=== PATIENT | male | born 1995 | race American Indian/Alaskan Native ===

== ENCOUNTER 2016-11-15 19:26 | Emergency (ER) | payer MEDICAID ==
[2016-11-15] MEDS ORDERED: Sodium Chloride 0.9% 1,000 ML IV SCH (20:00)
--- NOTE | 2016-11-15 20:38 | EDM.PDOC ---
ED HPI GENERAL MEDICAL PROBLEM - General Chief Complaint: Drug or Alcohol Abuse Stated Complaint: MEDICAL [facility]IA [facility] Time Seen by Provider: 11/15/16 19:41 Source of Information: Reports: Patient, Family (Mother) - History of Present Illness INITIAL COMMENTS - FREE TEXT/NARRATIVE: took Mucinex tablets to get high; This is a 20 year old male arrives to ER via Ambulance, he is here with his Mother, who reports he was released from a year long Inpatient Treatment group near [place], He has been home for two weeks. He was at his prior Foster Dad's home then to attend appointment at "[employer]" when he had his [facility] Volunteer Preload Supervisor take him to [employer], where he purchased to packages of Mucinex. Reports took Mucinex at 13:30 pm today and again at 18:30 this evening. He reports he just wanted to get high, has no desire to "kill himself" or harm himself. Denies use of any other chemical or ETOH. Mom reports Primary Care Provider; Dr. Coleman and Dr. Shamika Astorga at [facility] Mom report feel safe at home with Parviz. He is not violent. Onset: Today Duration: Hour(s): Location: Reports: Generalized Quality: Reports: Same as Previous Episode (previous overdose of Mucinex ; multi times at [facility], [facility], & [place]) Improves with: Reports: None Worsens with: Reports: None Associated Symptoms: Reports: Confusion (reports feeling high and seeing double right now) Treatments CHEMICAL PLANT MANAGER: Reports: See EMS Report - Related Data Allergies Allergy/AdvReac Type Severity Reaction Status Date / Time No Known Allergies Allergy Verified 12/27/15 01:08 Home Meds: Home Meds FLUoxetine [PROzac] 40 tab PO BEDTIME 11/14/14 [History] Cholecalciferol (Vitamin D3) [Vitamin D3] 1,000 tab PO DAILY 01/07/15 [History] Levothyroxine 25 mcg PO DAILY 12/27/15 [History] Naltrexone 1 tab PO DAILY 12/27/15 [History] OLANZapine [Zyprexa] 35 mg PO DAILY 12/27/15 [History] Propranolol [Inderal] 20 mg PO DAILY 12/27/15 [History] Past Medical History Neurological History: Reports: Brain Injury Other Neuro History: Mood instability. alcohol Psychiatric History: Reports: Addiction, Suicide Attempt, Other (See Below) Other Psychiatric History: wrist cutting Endocrine/Metabolic History: Reports: Hypothyroidism Social & Family History - Family History Family Medical History: Unobtainable - Tobacco Use Smoking Status *Q: Heavy Tobacco Smoker Years of Tobacco use: 7 Packs/Tins Daily: 1 Used Tobacco, but Quit: No Second Hand Smoke Exposure: Yes - Caffeine Use Caffeine Use: Reports: None - Recreational Drug Use Recreational Drug Use: Yes Drug Use in Last 12 Months: Yes Recreational Drug Type: Reports: Other (see below) Other Recreational Drug Type: mucenex twice a year Recreational Drug Use Frequency: Not Used In Over 2 Months - Living Situation & Occupation Living situation: Reports: Single Occupation: Disabled (lives with Mom in [place], [place] for the past 2 weeks, prior one year treatment center alf in [place], [place]. near [place], [place] ED ROS GENERAL - Review of Systems Review Of Systems: See Below Constitutional: Reports: Other (feeling of euphoria) HEENT: Reports: Vision Change Respiratory: Reports: No Symptoms Cardiovascular: Reports: No Symptoms Endocrine: Reports: No Symptoms GI/Abdominal: Reports: No Symptoms : Reports: No Symptoms Musculoskeletal: Reports: No Symptoms Skin: Reports: No Symptoms Neurological: Reports: No Symptoms Psychiatric: Reports: Other (sedation) Hematologic/Lymphatic: Reports: No Symptoms Immunologic: Reports: No Symptoms ED EXAM, GENERAL - Physical Exam Exam: See Below Exam Limited By: Altered Mental Status General Appearance: Other (sedation, answers questions appropriately. oriented to person, place and time.) Eye Exam: Bilateral Eye: Abnormal EOM, Normal Inspection, Vision Changes Ears: Normal External Exam, Normal Canal, Hearing Grossly Normal, Normal TMs Ear Exam: Bilateral Ear: Auricle Normal, Canal Normal, TM normal Nose: Normal Inspection, Normal Mucosa, No Blood Throat/Mouth: Normal Inspection, Normal Lips, Normal Teeth, Normal Gums, Normal Oropharynx, Normal Voice, No Airway Compromise Head: Atraumatic, Normocephalic Neck: Normal Inspection, Supple, Non-Tender, Full Range of Motion Respiratory/Chest: No Respiratory Distress, Lungs Clear, Normal Breath Sounds, No Accessory Muscle Use, Chest Non-Tender Cardiovascular: Normal Peripheral Pulses, Regular Rate, Rhythm, No Edema, No Gallop, No JVD, No Murmur, No Rub Peripheral Pulses: 2+: Radial (L), Radial (R), Posterior Tibial (R), Dorsalis Pedis (L) GI/Abdominal: Normal Bowel Sounds, Soft, Non-Tender, No Organomegaly, No Distention, No Abnormal Bruit, No Mass (Male) Exam: Deferred Rectal (Males) Exam: Deferred Back Exam: Normal Inspection, Full Range of Motion, NT Extremities: Normal Inspection, Normal Range of Motion, Non-Tender, Normal Capillary Refill, No Pedal Edema Neurological: Alert, Oriented, CN II-XII Intact, Normal Cognition, Normal Gait, Normal Reflexes, No Motor/Sensory Deficits Psychiatric: Depressed Mood, Flat Affect Skin Exam: Warm, Dry, Intact, Normal Color, No Rash Lymphatic: No Adenopathy EKG INTERPRETATION Rhythm: NSR QRS: RBBB Course - Vital Signs Last Recorded V/S: Last Vital Signs Temp 36.9 C 11/15/16 19:32 Pulse 61 11/15/16 22:36 Resp 16 11/15/16 22:36 BP 128/78 11/15/16 22:36 Pulse Ox 92 L 11/15/16 22:36 - Orders/Labs/Meds Orders: Active Orders 24 hr Category Date Time Status EKG Documentation Completion [RC] ASDIRECTED Care 11/15/16 19:46 Active Oxygen Therapy [RC] ASDIRECTED Care 11/15/16 19:47 Active Sodium Chloride 0.9% [Normal Saline] 1,000 ml Med 11/15/16 20:00 Active IV ASDIRECTED EKG 12 Lead [EK] Urgent Ther 11/15/16 19:44 Ordered Medication Orders Sodium Chloride (Normal Saline) 1,000 mls @ 999 mls/hr IV ASDIRECTED BON Last Admin: 11/15/16 19:49 Dose: 999 mls/hr Labs: Laboratory Tests 11/15/16 11/15/16 11/15/16 Range/Units 19:48 19:48 19:48 WBC 7.5 (4.5-11.0) K/uL RBC 5.91 H (4.30-5.90) M/uL Hgb 16.4 H (12.0-15.0) g/dL Hct 48.6 (40.0-54.0) % MCV 82 (80-98) fL MCH 28 (27-31) pg MCHC 34 (32-36) % Plt Count 324 (150-400) K/uL Neut % (Auto) 68 H (36-66) % Lymph % (Auto) 22 L (24-44) % [place] % (Auto) 8 H (2-6) % Eos % (Auto) 1 L (2-4) % Baso % (Auto) 1 (0-1) % Sodium 138 L (140-148) mmol/L Potassium 4.3 (3.6-5.2) mmol/L Chloride 104 (100-108) mmol/L Carbon Dioxide 27 (21-32) mmol/L Anion Gap 11.3 (5.0-14.0) mmol/L BUN 9 (7-18) mg/dL Creatinine 1.0 (0.8-1.3) mg/dL Est Cr Clr Drug Dosing 138.49 mL/min Estimated GFR (MDRD) > 60 (>60) Glucose 83 (74-106) mg/dL Calcium 8.5 (8.5-10.1) mg/dL Total Bilirubin 1.0 (0.2-1.0) mg/dL AST 49 H D (15-37) U/L ALT 81 H (12-78) U/L Alkaline Phosphatase 179 H (46-116) U/L Total Protein 8.2 (6.4-8.2) g/dL Albumin 4.0 (3.4-5.0) g/dL Globulin 4.2 H (2.3-3.5) g/dL Albumin/Globulin Ratio 1.0 L (1.2-2.2) Urine Color Urine Appearance Urine pH (4.5-8.0) Ur Specific [place] (1.008-1.030) Urine Protein (NEGATIVE) mg/dL Urine Glucose (UA) (NEGATIVE) mg/dL Urine Ketones (NEGATIVE) mg/dL Urine Occult Blood (NEGATIVE) Urine Nitrite (NEGAITVE) Urine Bilirubin (NEGATIVE) Urine Urobilinogen (NORMAL) mg/dL Ur Leukocyte Esterase (NEGATIVE) Urine RBC (0-5) Urine WBC (0-5) Ur Epithelial Cells Amorphous Sediment Urine Bacteria Urine Mucus Urine Opiates Screen (NEGATIVE) Ur Oxycodone Screen (NEGATIVE) Urine Methadone Screen (NEGATIVE) Ur Propoxyphene Screen (NEGATIVE) Acetaminophen 0.0 L (10.0-30.0) ug/mL Ur Barbiturates Screen (NEGATIVE) Ur Tricyclics Screen (NEGATIVE) Ur Phencyclidine Scrn (NEGATIVE) Ur Amphetamine Screen (NEGATIVE) U Methamphetamines Scrn (NEGATIVE) Urine MDMA Screen (NEGATIVE) U Benzodiazepines Scrn (NEGATIVE) U Cocaine Metab Screen (NEGATIVE) U Marijuana (THC) Screen (NEGATIVE) Ethyl Alcohol mg/dL 11/15/16 11/15/16 11/15/16 Range/Units 19:48 20:11 20:11 WBC (4.5-11.0) K/uL RBC (4.30-5.90) M/uL Hgb (12.0-15.0) g/dL Hct (40.0-54.0) % MCV (80-98) fL MCH (27-31) pg MCHC (32-36) % Plt Count (150-400) K/uL Neut % (Auto) (36-66) % Lymph % (Auto) (24-44) % [place] % (Auto) (2-6) % Eos % (Auto) (2-4) % Baso % (Auto) (0-1) % Sodium (140-148) mmol/L Potassium (3.6-5.2) mmol/L Chloride (100-108) mmol/L Carbon Dioxide (21-32) mmol/L Anion Gap (5.0-14.0) mmol/L BUN (7-18) mg/dL Creatinine (0.8-1.3) mg/dL Est Cr Clr Drug Dosing mL/min Estimated GFR (MDRD) (>60) Glucose (74-106) mg/dL Calcium (8.5-10.1) mg/dL Total Bilirubin (0.2-1.0) mg/dL AST (15-37) U/L ALT (12-78) U/L Alkaline Phosphatase (46-116) U/L Total Protein (6.4-8.2) g/dL Albumin (3.4-5.0) g/dL Globulin (2.3-3.5) g/dL Albumin/Globulin Ratio (1.2-2.2) Urine Color Yellow Urine Appearance Clear Urine pH 6.0 (4.5-8.0) Ur Specific [place] 1.015 (1.008-1.030) Urine Protein Negative (NEGATIVE) mg/dL Urine Glucose (UA) Normal (NEGATIVE) mg/dL Urine Ketones Negative (NEGATIVE) mg/dL Urine Occult Blood Negative (NEGATIVE) Urine Nitrite Negative (NEGAITVE) Urine Bilirubin Negative (NEGATIVE) Urine Urobilinogen Normal (NORMAL) mg/dL Ur Leukocyte Esterase Negative (NEGATIVE) Urine RBC 0-5 (0-5) Urine WBC 0-5 (0-5) Ur Epithelial Cells Rare Amorphous Sediment Not seen Urine Bacteria Few Urine Mucus Not seen Urine Opiates Screen Positive H (NEGATIVE) Ur Oxycodone Screen Positive H (NEGATIVE) Urine Methadone Screen Negative (NEGATIVE) Ur Propoxyphene Screen Negative (NEGATIVE) Acetaminophen (10.0-30.0) ug/mL Ur Barbiturates Screen Negative (NEGATIVE) Ur Tricyclics Screen Negative (NEGATIVE) Ur Phencyclidine Scrn Negative (NEGATIVE) Ur Amphetamine Screen Negative (NEGATIVE) U Methamphetamines Scrn Negative (NEGATIVE) Urine MDMA Screen Negative (NEGATIVE) U Benzodiazepines Scrn Negative (NEGATIVE) U Cocaine Metab Screen Negative (NEGATIVE) U Marijuana (THC) Screen Negative (NEGATIVE) Ethyl Alcohol < 3 mg/dL 11/15/16 Range/Units 22:00 WBC (4.5-11.0) K/uL RBC (4.30-5.90) M/uL Hgb (12.0-15.0) g/dL Hct (40.0-54.0) % MCV (80-98) fL MCH (27-31) pg MCHC (32-36) % Plt Count (150-400) K/uL Neut % (Auto) (36-66) % Lymph % (Auto) (24-44) % [place] % (Auto) (2-6) % Eos % (Auto) (2-4) % Baso % (Auto) (0-1) % Sodium (140-148) mmol/L Potassium (3.6-5.2) mmol/L Chloride (100-108) mmol/L Carbon Dioxide (21-32) mmol/L Anion Gap (5.0-14.0) mmol/L BUN (7-18) mg/dL Creatinine (0.8-1.3) mg/dL Est Cr Clr Drug Dosing mL/min Estimated GFR (MDRD) (>60) Glucose (74-106) mg/dL Calcium (8.5-10.1) mg/dL Total Bilirubin (0.2-1.0) mg/dL AST (15-37) U/L ALT (12-78) U/L Alkaline Phosphatase (46-116) U/L Total Protein (6.4-8.2) g/dL Albumin (3.4-5.0) g/dL Globulin (2.3-3.5) g/dL Albumin/Globulin Ratio (1.2-2.2) Urine Color Urine Appearance Urine pH (4.5-8.0) Ur Specific [place] (1.008-1.030) Urine Protein (NEGATIVE) mg/dL Urine Glucose (UA) (NEGATIVE) mg/dL Urine Ketones (NEGATIVE) mg/dL Urine Occult Blood (NEGATIVE) Urine Nitrite (NEGAITVE) Urine Bilirubin (NEGATIVE) Urine Urobilinogen (NORMAL) mg/dL Ur Leukocyte Esterase (NEGATIVE) Urine RBC (0-5) Urine WBC (0-5) Ur Epithelial Cells Amorphous Sediment Urine Bacteria Urine Mucus Urine Opiates Screen (NEGATIVE) Ur Oxycodone Screen (NEGATIVE) Urine Methadone Screen (NEGATIVE) Ur Propoxyphene Screen (NEGATIVE) Acetaminophen 0.0 L (10.0-30.0) ug/mL Ur Barbiturates Screen (NEGATIVE) Ur Tricyclics Screen (NEGATIVE) Ur Phencyclidine Scrn (NEGATIVE) Ur Amphetamine Screen (NEGATIVE) U Methamphetamines Scrn (NEGATIVE) Urine MDMA Screen (NEGATIVE) U Benzodiazepines Scrn (NEGATIVE) U Cocaine Metab Screen (NEGATIVE) U Marijuana (THC) Screen (NEGATIVE) Ethyl Alcohol mg/dL Meds: Medications Generic Name Dose Route Start Last Admin Trade Name Freq PRN Reason Stop Dose Admin Sodium Chloride 1,000 mls @ 999 mls/hr 11/15/16 20:00 11/15/16 19:49 Normal Saline IV 999 mls/hr ASDIRECTED [facility] Administration - Re-Assessments/Exams Free Text/Narrative Re-Assessment/Exam: 11/15/16 20:45 contacted Poison Control, reports Mucinex peaks effect at 6 to 8 hours, clears out in 12 hours, recommends labs, monitor for seizure activity, safe to discharge to home, if clinical indicated. discussed with Parent, she feels safe taking him home. Will go home and search and removes any substances of abuse. and will be back later this evening. 11/15/16 20:49 labs ordered IV Normal Saline 999ml/hr x 2 liters then at rate of 150ml monitor closely 11/15/16 23:58 observed in ER for 4 + hours, no tremor, seizure activity noted. He watched TV and rested, ate pudding, crackers, soda without any nausea, vomiting reports feeling better, no more double vision, resolved, ready to go home Mom to transport home. Departure - Departure Time of Disposition: 23:53 Disposition: Home, Self-Care 01 Condition: good Clinical Impression: Drug abuse - Discharge Information Referrals: PCP,None [Primary Care Provider] - Forms: ED Department Discharge Care Plan Goals: Drug abuse -Mom to call Mental Health Provider for addiction in am -discussed with Mr. Jj not further drugs , go home and rest. -family agrees with plan of care - Problem List & Annotations (1) Drug abuse SNOMED Code(s): 23104961 Code(s): F19.10 - OTHER PSYCHOACTIVE SUBSTANCE ABUSE, UNCOMPLICATED Status : Acute Priority: High Current Visit: Yes - Problem List Review Problem List Initiated/Reviewed/Updated: Yes - My Orders Last 24 Hours: My Active Orders 11/15/16 19:44 EKG 12 Lead [EK] Urgent 11/15/16 19:46 EKG Documentation Completion [RC] ASDIRECTED 11/15/16 19:47 Oxygen Therapy [RC] ASDIRECTED 11/15/16 20:00 Sodium Chloride 0.9% [Normal Saline] 1,000 ml IV ASDIRECTED - Assessment/Plan Last 24 Hours: My Active Orders 11/15/16 19:44 EKG 12 Lead [EK] Urgent 11/15/16 19:46 EKG Documentation Completion [RC] ASDIRECTED 11/15/16 19:47 Oxygen Therapy [RC] ASDIRECTED 11/15/16 20:00 Sodium Chloride 0.9% [Normal Saline] 1,000 ml IV ASDIRECTED Plan: Drug abuse -Mom to call Mental Health Provider for addiction in am -discussed with Mr. Jj not further drugs , go home and rest. -family agrees with plan of care return to ER if not improved or symptoms worsen.
[2016-11-15 22:40] VITALS: BP 128/78
== END 2016-11-16 00:01 | disposition home or self-care (01) ==
LOC: EEVIPCON 19:26 → JP.ED 19:26
DX: F19.10 Other psychoactive substance abuse, uncomplicated (principal); E03.9 Hypothyroidism, unspecified; F17.210 Nicotine dependence, cigarettes, uncomplicated; Z79.899 Other long term (current) drug therapy
CPT/HCPCS: 36415; 80053; 80305; 81001; 85025; 93005; 96360; 99283; G0480; J7040; 93010

== ENCOUNTER 2016-12-06 13:11 | Emergency (ER) | payer MEDICAID ==
[2016-12-06 13:32] VITALS: BP 136/82
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
== END 2016-12-06 14:55 | disposition left against medical advice (07) ==
LOC: JP.ED 13:11
DX: F19.10 Other psychoactive substance abuse, uncomplicated (principal); R45.4 Irritability and anger; F17.210 Nicotine dependence, cigarettes, uncomplicated; E03.9 Hypothyroidism, unspecified; Z79.899 Other long term (current) drug therapy
CPT/HCPCS: 36415; 80305; 99285; G0480; 99282

== ENCOUNTER 2016-12-10 21:54 | Emergency (ER) | payer MEDICAID ==
[2016-12-10 23:56] VITALS: BP 156/90
[2016-12-11] MEDS ORDERED: Promethazine 25 MG/ML SDV IM ONE (00:27)
--- NOTE | 2016-12-11 00:37 | EDM.PDOC ---
ED HPI GENERAL MEDICAL PROBLEM - General Chief Complaint: Gastrointestinal Problem Stated Complaint: ILLNESS Time Seen by Provider: 12/10/16 22:46 Source of Information: Reports: Patient History Limitations: Reports: No Limitations - History of Present Illness INITIAL COMMENTS - FREE TEXT/NARRATIVE: upset stomach for the past 3 days; this is a 21 year old male, presents to ER for evaluation of symptoms. He reports has been in Care Home for the past 3 days, got out this afternoon. He reports his stomach has been nauseated, feels like he is going to throw up, he has been drinking pop, which is okay on stomache, but food and liquids make him sick. denies any fever or chills. Onset: Gradual Duration: Constant Location: Reports: Abdomen Quality: Reports: Other (nausea) Severity: Mild Improves with: Reports: None Worsens with: Reports: Eating Associated Symptoms: Reports: Loss of Appetite, Other (nausea) Denies Pain Score (Numeric/FACES): 0 - Related Data Allergies Allergy/AdvReac Type Severity Reaction Status Date / Time amoxicillin Allergy Swelling Verified 12/10/16 23:45 Home Meds: Home Meds FLUoxetine [PROzac] 40 tab PO BEDTIME 11/14/14 [History] Cholecalciferol (Vitamin D3) [Vitamin D3] 1,000 tab PO DAILY 01/07/15 [History] Levothyroxine 25 mcg PO DAILY 12/27/15 [History] Naltrexone 1 tab PO DAILY 12/27/15 [History] OLANZapine [Zyprexa] 35 mg PO DAILY 12/27/15 [History] Propranolol [Inderal] 80 mg PO DAILY 12/27/15 [History] Past Medical History - Past Health History Medical/Surgical History: Denies Medical/Surgical History Cardiovascular History: Reports: Hypertension Musculoskeletal History: Reports: Fracture Neurological History: Reports: Brain Injury Other Neuro History: Mood instability. alcohol Psychiatric History: Reports: Addiction, Suicide Attempt, Other (See Below) Other Psychiatric History: wrist cutting Endocrine/Metabolic History: Reports: Hypothyroidism Social & Family History - Family History Family Medical History: Unobtainable - Tobacco Use Smoking Status *Q: Current Every Day Smoker Years of Tobacco use: 7 Packs/Tins Daily: 0.2 Used Tobacco, but Quit: No Second Hand Smoke Exposure: No - Caffeine Use Caffeine Use: Reports: Soda - Recreational Drug Use Recreational Drug Use: No Drug Use in Last 12 Months: Yes Recreational Drug Type: Reports: Other (see below) Other Recreational Drug Type: Musinex Has not taken for 5 days Recreational Drug Use Frequency: Daily - Living Situation & Occupation Living situation: Reports: Single Occupation: Disabled (lives with Mom in [place], [place] for the past 2 weeks, prior one year treatment center longterm in [place], [place]. near [place], [place] ED ROS GENERAL - Review of Systems Review Of Systems: See Below Constitutional: Reports: Malaise, Decreased Appetite HEENT: Reports: No Symptoms Respiratory: Reports: No Symptoms Cardiovascular: Reports: No Symptoms Endocrine: Reports: No Symptoms GI/Abdominal: Reports: Decreased Appetite, Nausea : Reports: No Symptoms Musculoskeletal: Reports: No Symptoms Skin: Reports: No Symptoms Neurological: Reports: No Symptoms Psychiatric: Reports: No Symptoms Hematologic/Lymphatic: Reports: No Symptoms Immunologic: Reports: No Symptoms ED EXAM, GI/ABD - Physical Exam Exam: See Below Exam Limited By: No Limitations General Appearance: Alert, WD/WN, No Apparent Distress Eyes: Bilateral: Normal Appearance Ears: Normal External Exam, Normal Canal, Hearing Grossly Normal, Normal TMs Nose: Normal Inspection, Normal Mucosa, No Blood Throat/Mouth: Normal Inspection, Normal Lips, Normal Teeth, Normal Gums, Normal Oropharynx, Normal Voice, No Airway Compromise Head: Atraumatic, Normocephalic Neck: Normal Inspection, Supple, Non-Tender, Full Range of Motion Respiratory/Chest: No Respiratory Distress, Lungs Clear, Normal Breath Sounds, No Accessory Muscle Use, Chest Non-Tender Cardiovascular: Normal Peripheral Pulses, Regular Rate, Rhythm, No Edema, No Gallop, No JVD, No Murmur, No Rub GI/Abdominal: Normal Bowel Sounds, Soft, Non-Tender, No Organomegaly, No Distention, No Abnormal Bruit, No Mass (Male) Exam: Deferred Rectal (Males) Exam: Deferred Back Exam: Normal Inspection, Full Range of Motion Extremities: Normal Inspection, Normal Range of Motion, Non-Tender, No Pedal Edema, Normal Capillary Refill Neurological: Alert, Oriented, CN II-XII Intact, Normal Cognition, Normal Gait, Normal Reflexes, No Motor/Sensory Deficits Psychiatric: Normal Affect, Normal Mood Skin Exam: Warm, Dry, Intact, Normal Color, No Rash Lymphatic: No Adenopathy Course - Vital Signs Last Recorded V/S: Last Vital Signs Temp 36.8 C 12/10/16 23:55 Pulse 76 12/10/16 23:55 Resp 16 12/10/16 23:55 BP 156/90 H 12/10/16 23:55 Pulse Ox 96 12/10/16 23:55 - Orders/Labs/Meds Meds: Medications Discontinued Medications Generic Name Dose Route Start Last Admin Trade Name Freq PRN Reason Stop Dose Admin Promethazine HCl 25 mg 12/11/16 00:27 12/11/16 00:40 Phenergan IM 12/11/16 00:28 25 mg ONETIME ONE Administration - Re-Assessments/Exams Free Text/Narrative Re-Assessment/Exam: 12/11/16 01:12 given Phenergan 25mg im will discharge to home with script for Zofran odt 4mg every 8 hr prn nausea and vomiting # 5 Mr. Warner agrees with plan of care. Departure - Departure Time of Disposition: 01:15 Disposition: Home, Self-Care 01 Condition: Good Clinical Impression: Gastroenteritis - Discharge Information Instructions: Viral Gastroenteritis, Adult Referrals: PCP,None [Primary Care Provider] - Forms: ED Department Discharge Care Plan Goals: gastroenteritis -Phenegran 25mg im -home medication; Zofran odt one every 8 hours as needed for nausea -rest -push fluids; clear liquids as directed return to clinic or er if not improved or symptoms worsen. - Problem List & Annotations (1) Gastroenteritis SNOMED Code(s): 03457888 Code(s): K52.9 - NONINFECTIVE GASTROENTERITIS AND COLITIS, UNSPECIFIED Status: Acute Current Visit: Yes - Problem List Review Problem List Initiated/Reviewed/Updated: Yes - Assessment/Plan Plan: gastroenteritis -Phenegran 25mg im -home medication; Zofran odt one every 8 hours as needed for nausea -rest -push fluids; clear liquids as directed return to clinic or er if not improved or symptoms worsen.
== END 2016-12-11 01:12 | disposition home or self-care (01) ==
LOC: JP.ED 21:54
DX: K52.9 Noninfective gastroenteritis and colitis, unspecified (principal); F17.210 Nicotine dependence, cigarettes, uncomplicated; I10 Essential (primary) hypertension; E03.9 Hypothyroidism, unspecified; Z79.899 Other long term (current) drug therapy; Z88.1 Allergy status to other antibiotic agents
CPT/HCPCS: 96372; 99284; J2550; 99283

== ENCOUNTER 2016-12-17 20:22 | Emergency (ER) | payer MEDICAID ==
[2016-12-17 21:09] VITALS: BP 146/89
--- NOTE | 2016-12-17 21:46 | EDM.PDOC ---
[id number]: DETOX EVAL Time Seen by Provider: 12/17/16 21:25 Source of Information: Reports: Patient History Limitations: Reports: No Limitations - History of Present Illness INITIAL COMMENTS - FREE TEXT/NARRATIVE: 21-year-old male with chronic substance abuse issues has been doing methamphetamine and was brought in to be cleared for detox. He denies drinking alcohol. No other medical complaints at this time. Onset: Unknown/Unsure Associated Symptoms: Reports: No Other Symptoms Denies Pain Score (Numeric/FACES): 0 - Related Data Allergies Allergy/AdvReac Type Severity Reaction Status Date / Time amoxicillin Allergy Swelling Verified 12/17/16 21:09 Home Meds: Home Meds Cholecalciferol (Vitamin D3) [Vitamin D3] 1,000 tab PO DAILY 01/07/15 [History] Levothyroxine 25 mcg PO DAILY 12/27/15 [History] Propranolol [Inderal] 80 mg PO DAILY 12/27/15 [History] Past Medical History - Past Health History Medical/Surgical History: Denies Medical/Surgical History Cardiovascular History: Reports: Hypertension Musculoskeletal History: Reports: Fracture Neurological History: Reports: Brain Injury Other Neuro History: Mood instability. alcohol Psychiatric History: Reports: Addiction, Suicide Attempt, Other (See Below) Other Psychiatric History: wrist cutting ETOH abuse Endocrine/Metabolic History: Reports: Hypothyroidism Social & Family History - Family History Family Medical History: Unobtainable - Tobacco Use Smoking Status *Q: Current Every Day Smoker Years of Tobacco use: 7 Packs/Tins Daily: 0.5 Used Tobacco, but Quit: No Second Hand Smoke Exposure: Yes - Caffeine Use Caffeine Use: Reports: Soda, Tea - Alcohol Use Days Per Week of Alcohol Use: 0 - Recreational Drug Use Recreational Drug Use: Yes Drug Use in Last 12 Months: Yes Recreational Drug Type: Reports: Marijuana/Hashish, Methamphetamine Other Recreational Drug Type: Musinex Has not taken for 5 days Recreational Drug Use Frequency: Monthly - Living Situation & Occupation Living situation: Reports: Single Occupation: Disabled (lives with Mom in [place], [place] for the past 2 weeks, prior one year treatment center alf in [place], [place]. near [place], [place] ED ROS GENERAL - Review of Systems Review Of Systems: See Below Constitutional: Denies: Fever, Chills Respiratory: Denies: Shortness of Breath, Cough Cardiovascular: Denies: Chest Pain GI/Abdominal: Denies: Abdominal Pain, Nausea, Vomiting Skin: Reports: No Symptoms Neurological: Reports: No Symptoms ED EXAM, BEHAVIORAL HEALTH - Physical Exam Exam: See Below Exam Limited By: No Limitations General Appearance: Alert, No Apparent Distress Eye Exam: Bilateral Eye: Normal Inspection Respiratory/Chest: No Respiratory Distress Cardiovascular: Regular Rate, Rhythm Extremities: Normal Inspection Neurological: Alert Psychiatric: Flat Affect Skin Exam: Warm, Dry COURSE, BEHAVIORAL HEALTH COMP - Course Vital Signs: Last Vital Signs Temp 98.6 F 12/17/16 21:18 Pulse 96 12/17/16 21:18 Resp 16 12/17/16 21:18 BP 146/89 H 12/17/16 21:18 Pulse Ox 99 12/17/16 21:18 Orders, Labs, Meds: Laboratory Tests 12/17/16 12/17/16 12/17/16 Range/Units 21:51 21:51 21:51 WBC 8.7 (4.5-11.0) K/uL RBC 5.37 (4.30-5.90) M/uL Hgb 15.0 (12.0-15.0) g/dL Hct 43.7 (40.0-54.0) % MCV 81 (80-98) fL MCH 28 (27-31) pg MCHC 34 (32-36) % Plt Count 297 (150-400) K/uL Neut % (Auto) 67 H (36-66) % Lymph % (Auto) 22 L (24-44) % [place] % (Auto) 10 H (2-6) % Eos % (Auto) 1 L (2-4) % Baso % (Auto) 1 (0-1) % Sodium 134 L (140-148) mmol/L Potassium 3.2 L (3.6-5.2) mmol/L Chloride 98 L (100-108) mmol/L Carbon Dioxide 28 (21-32) mmol/L Anion Gap 11.2 (5.0-14.0) mmol/L BUN 10 (7-18) mg/dL Creatinine 1.0 (0.8-1.3) mg/dL Est Cr Clr Drug Dosing 137.31 mL/min Estimated GFR (MDRD) > 60 (>60) Glucose 101 (74-106) mg/dL Calcium 8.9 (8.5-10.1) mg/dL Urine Opiates Screen (NEGATIVE) Ur Oxycodone Screen (NEGATIVE) Urine Methadone Screen (NEGATIVE) Ur Propoxyphene Screen (NEGATIVE) Ur Barbiturates Screen (NEGATIVE) Ur Tricyclics Screen (NEGATIVE) Ur Phencyclidine Scrn (NEGATIVE) Ur Amphetamine Screen (NEGATIVE) U Methamphetamines Scrn (NEGATIVE) Urine MDMA Screen (NEGATIVE) U Benzodiazepines Scrn (NEGATIVE) U Cocaine Metab Screen (NEGATIVE) U Marijuana (THC) Screen (NEGATIVE) Ethyl Alcohol < 3 mg/dL 12/17/16 Range/Units 22:31 WBC (4.5-11.0) K/uL RBC (4.30-5.90) M/uL Hgb (12.0-15.0) g/dL Hct (40.0-54.0) % MCV (80-98) fL MCH (27-31) pg MCHC (32-36) % Plt Count (150-400) K/uL Neut % (Auto) (36-66) % Lymph % (Auto) (24-44) % [place] % (Auto) (2-6) % Eos % (Auto) (2-4) % Baso % (Auto) (0-1) % Sodium (140-148) mmol/L Potassium (3.6-5.2) mmol/L Chloride (100-108) mmol/L Carbon Dioxide (21-32) mmol/L Anion Gap (5.0-14.0) mmol/L BUN (7-18) mg/dL Creatinine (0.8-1.3) mg/dL Est Cr Clr Drug Dosing mL/min Estimated GFR (MDRD) (>60) Glucose (74-106) mg/dL Calcium (8.5-10.1) mg/dL Urine Opiates Screen Negative (NEGATIVE) Ur Oxycodone Screen Negative (NEGATIVE) Urine Methadone Screen Negative (NEGATIVE) Ur Propoxyphene Screen Negative (NEGATIVE) Ur Barbiturates Screen Negative (NEGATIVE) Ur Tricyclics Screen Negative (NEGATIVE) Ur Phencyclidine Scrn Negative (NEGATIVE) Ur Amphetamine Screen Positive H (NEGATIVE) U Methamphetamines Scrn Positive H (NEGATIVE) Urine MDMA Screen Negative (NEGATIVE) U Benzodiazepines Scrn Negative (NEGATIVE) U Cocaine Metab Screen Negative (NEGATIVE) U Marijuana (THC) Screen Positive H (NEGATIVE) Ethyl Alcohol mg/dL Re-Assessment/Re-Exam: At the request of Tor Rivera a urine drug screen and EtOH were obtained. A CBC and BMP were also obtained. The CBC and BMP were reassuring, EtOH was 0. It took a while for the patient to be able to give us a urine for drug screening. Urine tox screen was positive for amphetamine, methamphetamine and marijuana. Patient was cleared physically for detox and [facility] was called. Departure - Departure Time of Disposition: 23:21 Disposition: DC/Tfer to Other 70 Condition: Good Clinical Impression: Polysubstance abuse - Discharge Information Instructions: Chemical Dependency Referrals: Edgar Riggs PA-C [Primary Care Provider] - Forms: ED Department Discharge Additional Instructions: Patient will be transported to [facility] for detox for methamphetamine abuse.
== END 2016-12-17 23:21 | disposition other institution (70) ==
LOC: JP.ED 20:22
DX: F19.10 Other psychoactive substance abuse, uncomplicated (principal); F17.210 Nicotine dependence, cigarettes, uncomplicated; E03.9 Hypothyroidism, unspecified; I10 Essential (primary) hypertension; Z79.899 Other long term (current) drug therapy; Z88.1 Allergy status to other antibiotic agents
CPT/HCPCS: 36415; 80048; 80305; 85025; 99284; G0480; 99285

== ENCOUNTER 2017-07-13 03:10 | Day surgery (SDC) | payer MEDICAID ==
[2017-07-13] MEDS ORDERED: Sodium Chloride 0.9% 10 ML Syringe FLUSH PRN ×3 (03:51→04:46)
[2017-07-13] MEDS ORDERED: Ondansetron 4 MG/2 ML SDV IVPUSH ONE (03:51)
[2017-07-13] MEDS ORDERED: HYDROmorphone 0.5 MG/0.5 ML Syringe IVPUSH ONE (03:51)
--- NOTE | 2017-07-13 03:55 | EDM.PDOC ---
ED HPI GENERAL MEDICAL PROBLEM - General Chief Complaint: Abdominal Pain Stated Complaint: STOMACH PAIN Time Seen by Provider: 07/13/17 03:47 Source of Information: Reports: Patient, Family, RN Notes Reviewed History Limitations: Reports: No Limitations - History of Present Illness INITIAL COMMENTS - FREE TEXT/NARRATIVE: 21-year-old gentleman presents emergency department day complaint of abdominal pain, he states the pain started earlier this evening has progressively gotten worse, he has had this pain a couple times in the past but not at this level has been going on for the last couple weeks on and off also has a history of methamphetamine use last used last weekend abd Pain Score (Numeric/FACES): 10 - Related Data Allergies Allergy/AdvReac Type Severity Reaction Status Date / Time amoxicillin Allergy Swelling Verified 12/17/16 21:09 Home Meds: Home Meds Cholecalciferol (Vitamin D3) [Vitamin D3] 1,000 tab PO DAILY 01/07/15 [History] Levothyroxine 25 mcg PO DAILY 12/27/15 [History] Propranolol [Inderal] 80 mg PO DAILY 12/27/15 [History] Sertraline HCl [Sertraline HCl] 100 mg PO DAILY 07/13/17 [History] Past Medical History Cardiovascular History: Reports: Hypertension Musculoskeletal History: Reports: Fracture Neurological History: Reports: Brain Injury Other Neuro History: Mood instability. alcohol Psychiatric History: Reports: Addiction, Suicide Attempt, Other (See Below) Other Psychiatric History: wrist cutting ETOH abuse Endocrine/Metabolic History: Reports: Hypothyroidism Social & Family History - Family History Family Medical History: Unobtainable - Tobacco Use Smoking Status *Q: Current Every Day Smoker Years of Tobacco use: 11 Packs/Tins Daily: 0.2 Used Tobacco, but Quit: No Second Hand Smoke Exposure: Yes - Caffeine Use Caffeine Use: Reports: Soda - Alcohol Use Days Per Week of Alcohol Use: 0 - Recreational Drug Use Recreational Drug Use: Yes Drug Use in Last 12 Months: Yes Recreational Drug Type: Reports: Heroin, Marijuana/Hashish, Methamphetamine, Oxycodone, Other (see below) Other Recreational Drug Type: gabapentin Recreational Drug Use Frequency: Weekly - Living Situation & Occupation Living situation: Reports: Single Occupation: Disabled (lives with Mom in [place], [place] for the past 2 weeks, prior one year treatment center [facility] in [place], [place]. near [place], [place] ED ROS GENERAL - Review of Systems Review Of Systems: See Below Constitutional: Denies: Fever, Chills HEENT: Reports: No Symptoms Respiratory: Reports: No Symptoms Cardiovascular: Reports: No Symptoms GI/Abdominal: Reports: Abdominal Pain, Nausea, Vomiting : Reports: No Symptoms Musculoskeletal: Reports: No Symptoms Skin: Reports: No Symptoms Neurological: Reports: No Symptoms ED EXAM, GI/ABD - Physical Exam Exam: See Below Exam Limited By: No Limitations General Appearance: Alert, WD/WN, No Apparent Distress Throat/Mouth: Normal Inspection, Normal Lips, Normal Teeth, Normal Gums, Normal Oropharynx, Normal Voice, No Airway Compromise Head: Atraumatic, Normocephalic Neck: Normal Inspection, Supple, Non-Tender, Full Range of Motion Respiratory/Chest: No Respiratory Distress, Lungs Clear, Normal Breath Sounds, No Accessory Muscle Use Cardiovascular: Regular Rate, Rhythm, No Murmur GI/Abdominal Exam: Soft, Tender (Right upper quadrant). No: Guarding, Rigid, Rebound Back Exam: Normal Inspection. No: CVA Tenderness (R), CVA Tenderness (L) Course - Vital Signs Last Recorded V/S: Last Vital Signs Temp 96.2 F 07/13/17 05:32 Pulse 51 L 07/13/17 05:32 Resp 14 07/13/17 05:32 BP 97/44 L 07/13/17 05:32 Pulse Ox 97 07/13/17 05:32 - Orders/Labs/Meds Orders: Active Orders 24 hr Category Date Time Status Peripheral IV Care [RC] . DIRECTED Care 07/13/17 03:52 Active Abdomen Pelvis w Cont [CT] Urgent Exams 07/13/17 03:51 Taken DRUG SCREEN, URINE [URCHEM] Stat Lab 07/13/17 06:02 Ordered Iopamidol [Isovue-300 (61%)] Med 07/13/17 04:46 Active 150 ml IV . DIRECTED PRN Sodium Chloride 0.9% [Normal Saline] 1,000 ml Med 07/13/17 04:00 Active IV ASDIRECTED Sodium Chloride 0.9% [Normal Saline] 85 ml Med 07/13/17 05:00 Active IV ASDIRECTED Sodium Chloride 0.9% [Saline Flush] Med 07/13/17 03:51 Active 10 ml FLUSH ASDIRECTED PRN Sodium Chloride 0.9% [Saline Flush] Med 07/13/17 03:51 Active 10 ml FLUSH ASDIRECTED PRN Sodium Chloride 0.9% [Saline Flush] Med 07/13/17 04:46 Active 10 ml FLUSH ONETIME PRN Peripheral IV Insertion Adult [OM.PC] Urgent Oth 07/13/17 03:51 Ordered Medication Orders Sodium Chloride (Normal Saline) 1,000 mls @ 500 mls/hr IV ASDIRECTED BON Last Admin: 07/13/17 04:08 Dose: 500 mls/hr Sodium Chloride (Normal Saline) 85 mls @ 3.5 mls/sec IV ASDIRECTED BON Last Admin: 07/13/17 05:05 Dose: 3.5 mls/sec Iopamidol (Isovue-300 (61%)) 150 ml IV . DIRECTED PRN PRN Reason: RADIOLOGY EXAM Stop: 07/14/17 04:47 Last Admin: 07/13/17 05:05 Dose: 150 ml Sodium Chloride (Saline Flush) 10 ml FLUSH ASDIRECTED PRN PRN Reason: Keep Vein Open Last Admin: 07/13/17 04:11 Dose: 10 ml Sodium Chloride (Saline Flush) 10 ml FLUSH ASDIRECTED PRN PRN Reason: Keep Vein Open Last Admin: 07/13/17 04:11 Dose: 10 ml Sodium Chloride (Saline Flush) 10 ml FLUSH ONETIME PRN PRN Reason: per radiology protocol Last Admin: 07/13/17 05:05 Dose: 10 ml Labs: Laboratory Tests 07/13/17 07/13/17 07/13/17 Range/Units 03:51 04:09 04:09 WBC 9.9 (4.5-11.0) K/uL RBC 5.95 H (4.30-5.90) M/uL Hgb 16.6 H (12.0-15.0) g/dL Hct 47.9 (40.0-54.0) % MCV 81 (80-98) fL MCH 28 (27-31) pg MCHC 35 (32-36) % Plt Count 274 (150-400) K/uL Neut % (Auto) 65 (36-66) % Lymph % (Auto) 26 (24-44) % [place] % (Auto) 7 H (2-6) % Eos % (Auto) 1 L (2-4) % Baso % (Auto) 0 (0-1) % Sodium 141 (140-148) mmol/L Potassium 3.8 (3.6-5.2) mmol/L Chloride 101 (100-108) mmol/L Carbon Dioxide 28 (21-32) mmol/L Anion Gap 11.8 (5.0-14.0) mmol/L BUN 18 D (7-18) mg/dL Creatinine 1.0 (0.8-1.3) mg/dL Est Cr Clr Drug Dosing 137.31 mL/min Estimated GFR (MDRD) > 60 (>60) Glucose 110 H (74-106) mg/dL Lactic Acid 1.3 (0.4-2.0) mmol/L Calcium 9.1 (8.5-10.1) mg/dL Total Bilirubin 0.4 D (0.2-1.0) mg/dL AST 12 L D (15-37) U/L ALT 32 (12-78) U/L Alkaline Phosphatase 127 H (46-116) U/L Total Protein 7.5 (6.4-8.2) g/dL Albumin 4.2 (3.4-5.0) g/dL Globulin 3.3 (2.3-3.5) g/dL Albumin/Globulin Ratio 1.3 (1.2-2.2) Lipase 164 (73-393) U/L Urine Color Urine Appearance Urine pH (4.5-8.0) Ur Specific [place] (1.008-1.030) Urine Protein (NEGATIVE) mg/dL Urine Glucose (UA) (NEGATIVE) mg/dL Urine Ketones (NEGATIVE) mg/dL Urine Occult Blood (NEGATIVE) Urine Nitrite (NEGAITVE) Urine Bilirubin (NEGATIVE) Urine Urobilinogen (NORMAL) mg/dL Ur Leukocyte Esterase (NEGATIVE) Urine RBC (0-5) Urine WBC (0-5) Ur Epithelial Cells Amorphous Sediment Urine Bacteria Urine Mucus 07/13/17 Range/Units 05:47 WBC (4.5-11.0) K/uL RBC (4.30-5.90) M/uL Hgb (12.0-15.0) g/dL Hct (40.0-54.0) % MCV (80-98) fL MCH (27-31) pg MCHC (32-36) % Plt Count (150-400) K/uL Neut % (Auto) (36-66) % Lymph % (Auto) (24-44) % [place] % (Auto) (2-6) % Eos % (Auto) (2-4) % Baso % (Auto) (0-1) % Sodium (140-148) mmol/L Potassium (3.6-5.2) mmol/L Chloride (100-108) mmol/L Carbon Dioxide (21-32) mmol/L Anion Gap (5.0-14.0) mmol/L BUN (7-18) mg/dL Creatinine (0.8-1.3) mg/dL Est Cr Clr Drug Dosing mL/min Estimated GFR (MDRD) (>60) Glucose (74-106) mg/dL Lactic Acid (0.4-2.0) mmol/L Calcium (8.5-10.1) mg/dL Total Bilirubin (0.2-1.0) mg/dL AST (15-37) U/L ALT (12-78) U/L Alkaline Phosphatase (46-116) U/L Total Protein (6.4-8.2) g/dL Albumin (3.4-5.0) g/dL Globulin (2.3-3.5) g/dL Albumin/Globulin Ratio (1.2-2.2) Lipase (73-393) U/L Urine Color Yellow Urine Appearance Clear Urine pH 8.0 (4.5-8.0) Ur Specific [place] 1.010 (1.008-1.030) Urine Protein Negative (NEGATIVE) mg/dL Urine Glucose (UA) Normal (NEGATIVE) mg/dL Urine Ketones Negative (NEGATIVE) mg/dL Urine Occult Blood Negative (NEGATIVE) Urine Nitrite Negative (NEGAITVE) Urine Bilirubin Negative (NEGATIVE) Urine Urobilinogen Normal (NORMAL) mg/dL Ur Leukocyte Esterase Negative (NEGATIVE) Urine RBC 0-5 (0-5) Urine WBC 0-5 (0-5) Ur Epithelial Cells Not seen Amorphous Sediment Few Urine Bacteria Few Urine Mucus Not seen Meds: Medications Generic Name Dose Route Start Last Admin Trade Name Freq PRN Reason Stop Dose Admin Sodium Chloride 1,000 mls @ 500 mls/hr 07/13/17 04:00 07/13/17 04:08 Normal Saline IV 500 mls/hr ASDIRECTED BON Administration Sodium Chloride 85 mls @ 3.5 mls/sec 07/13/17 05:00 07/13/17 05:05 Normal Saline IV 3.5 mls/sec ASDIRECTED BON Administration Iopamidol 150 ml 07/13/17 04:46 07/13/17 05:05 Isovue-300 (61%) IV 07/14/17 04:47 150 ml . DIRECTED PRN Administration RADIOLOGY EXAM Sodium Chloride 10 ml 07/13/17 03:51 07/13/17 04:11 Saline Flush FLUSH 10 ml ASDIRECTED PRN Administration Keep Vein Open Sodium Chloride 10 ml 07/13/17 03:51 07/13/17 04:11 Saline Flush FLUSH 10 ml ASDIRECTED PRN Administration Keep Vein Open Sodium Chloride 10 ml 07/13/17 04:46 07/13/17 05:05 Saline Flush FLUSH 10 ml ONETIME PRN Administration per radiology protocol Discontinued Medications Generic Name Dose Route Start Last Admin Trade Name Freq PRN Reason Stop Dose Admin Hydromorphone HCl 0.5 mg 07/13/17 03:51 07/13/17 04:11 Dilaudid IVPUSH 07/13/17 03:52 0.5 mg ONETIME ONE Administration Hydromorphone HCl Confirm 07/13/17 04:18 Dilaudid Administered 07/13/17 04:19 Dose 0.5 mg .ROUTE .STK-MED ONE Ondansetron HCl 4 mg 07/13/17 03:51 07/13/17 04:09 Zofran IVPUSH 07/13/17 03:52 4 mg ONETIME ONE Administration Departure - Departure Time of Disposition: 06:13 Disposition: Admitted As Inpatient 64 Condition: Good Clinical Impression: Acute cholecystitis - Discharge Information Referrals: Edgar Riggs PA-C [Primary Care Provider] - Forms: ED Department Discharge - My Orders Last 24 Hours: My Active Orders 07/13/17 03:51 Abdomen Pelvis w Cont [CT] Urgent Sodium Chloride 0.9% [Saline Flush] 10 ml FLUSH ASDIRECTED PRN Sodium Chloride 0.9% [Saline Flush] 10 ml FLUSH ASDIRECTED PRN Peripheral IV Insertion Adult [OM.PC] Urgent 07/13/17 03:52 Peripheral IV Care [RC] . DIRECTED 07/13/17 04:00 Sodium Chloride 0.9% [Normal Saline] 1,000 ml IV ASDIRECTED 07/13/17 04:46 Iopamidol [Isovue-300 (61%)] 150 ml IV . DIRECTED PRN Sodium Chloride 0.9% [Saline Flush] 10 ml FLUSH ONETIME PRN 07/13/17 05:00 Sodium Chloride 0.9% [Normal Saline] 85 ml IV ASDIRECTED 07/13/17 06:02 DRUG SCREEN, URINE [URCHEM] Stat - Assessment/Plan Last 24 Hours: My Active Orders 07/13/17 03:51 Abdomen Pelvis w Cont [CT] Urgent Sodium Chloride 0.9% [Saline Flush] 10 ml FLUSH ASDIRECTED PRN Sodium Chloride 0.9% [Saline Flush] 10 ml FLUSH ASDIRECTED PRN Peripheral IV Insertion Adult [OM.PC] Urgent 07/13/17 03:52 Peripheral IV Care [RC] . DIRECTED 07/13/17 04:00 Sodium Chloride 0.9% [Normal Saline] 1,000 ml IV ASDIRECTED 07/13/17 04:46 Iopamidol [Isovue-300 (61%)] 150 ml IV . DIRECTED PRN Sodium Chloride 0.9% [Saline Flush] 10 ml FLUSH ONETIME PRN 07/13/17 05:00 Sodium Chloride 0.9% [Normal Saline] 85 ml IV ASDIRECTED 07/13/17 06:02 DRUG SCREEN, URINE [URCHEM] Stat Plan: Assessment Acuity = acute Site and laterality = cholecystitis Etiology = unclear etiology Manifestations = abdominal pain Location of injury = Home Lab values = CBC, CMP, urinalysis unremarkable urine drug screen positive for marijuana CT scan shows moderate distention of the gallbladder enhancement of the gallbladder wall questionable Pericholecystic fluid Plan Called discussed case with Dr. Lake who agreed to evaluate patient hospital for surgical intervention This note was dictated using [employer] voice recognition software please call with any questions on syntax or fiordaliza.
[2017-07-13] MEDS ORDERED: Sodium Chloride 0.9% 1,000 ML IV SCH ×3 (04:00→13:15)
[2017-07-13] MEDS ORDERED: HYDROmorphone 0.5 MG/0.5 ML Syringe ONE (04:18)
[2017-07-13] MEDS ORDERED: Iopamidol 612 MG/ML 150 ML Bottle IV PRN (04:46)
[2017-07-13] MEDS ORDERED: Scopolamine 1.5 MG Transdermal Patch TOP PRN (07:16)
[2017-07-13] MEDS ORDERED: Ondansetron 4 MG/2 ML SDV IVPUSH PRN (07:16)
[2017-07-13] MEDS ORDERED: diphenhydrAMINE 25 MG Cap PO PRN (07:17)
[2017-07-13] MEDS ORDERED: Promethazine 25 MG/ML SDV IV PRN (07:17)
[2017-07-13] MEDS ORDERED: diphenhydrAMINE 50 MG/ML SDV IVPUSH PRN (07:18)
[2017-07-13] MEDS ORDERED: Morphine 2 MG/ML Syringe IV PRN (07:18)
[2017-07-13] MEDS ORDERED: Nicotine 14 MG/24 Hr Patch TRDERM PRN (07:19)
[2017-07-13] MEDS ORDERED: fentaNYL 100 MCG/2 ML SDV IVPUSH PRN (07:19)
[2017-07-13] MEDS ORDERED: ceFAZolin 2 GM in Premix Bag 1 BAG IV ONE (12:30)
[2017-07-13] MEDS ORDERED: metroNIDAZOLE/Normal Saline 500 MG in Premix Bag 1 BAG IV ONE (12:30)
[2017-07-13] MEDS ORDERED: Dexamethasone 4 MG/ML SDV ONE (12:31)
[2017-07-13] MEDS ORDERED: fentaNYL 250 MCG/5 ML SDV ONE (12:31)
[2017-07-13] MEDS ORDERED: Rocuronium 50 MG/5 ML Vial ONE (12:31)
[2017-07-13] MEDS ORDERED: Succinylcholine 200 MG/10 ML MDV ONE (12:31)
[2017-07-13] MEDS ORDERED: Ondansetron 4 MG/2 ML SDV ONE (12:31)
[2017-07-13] MEDS ORDERED: Neostigmine Methylsulfate 1 MG/ML 5 ML Syringe ONE (12:31)
[2017-07-13] MEDS ORDERED: Glycopyrrolate 0.2 MG/ML 5 ML MDV ONE (12:31)
[2017-07-13] MEDS ORDERED: Propofol 200 MG/20 ML SDV ONE (12:31)
[2017-07-13] MEDS ORDERED: Metoclopramide 10 MG/2 ML SDV IV PRN (13:14)
[2017-07-13] MEDS ORDERED: Zolpidem 5 MG Tab PO PRN (13:14)
[2017-07-13] MEDS ORDERED: Bisacodyl 5 MG Tab PO PRN (13:14)
[2017-07-13] MEDS ORDERED: Benzocaine/Cetylpyridinium/Menthol Lozenge MUCMEM PRN (13:14)
[2017-07-13] MEDS ORDERED: hydrOXYzine HCl 100 MG/2 ML SDV IM PRN (13:14)
[2017-07-13] MEDS ORDERED: Docusate Sodium 100 MG Cap PO PRN (13:14)
[2017-07-13] MEDS ORDERED: Lidocaine 1% with EPINEPHrine 1:100,000 50 ML MDV ONE (13:45)
[2017-07-13] MEDS ORDERED: Bupivacaine 0.5% 50 ML MDV ONE (13:45)
[2017-07-13] MEDS ORDERED: Lactated Ringers 1,000 ML ONE (13:56)
[2017-07-13] MEDS ORDERED: Ketorolac 60 MG/2 ML SDV ONE (14:13)
[2017-07-13] MEDS: Acetaminophen/HYDROcodone 325-10 MG Tab PO PRN ×2 (16:20→19:58)
[2017-07-13 18:54] VITALS: BP 129/75
--- NOTE | 2017-07-13 20:32 | CONS ---
DATE OF SERVICE: 07/13/2017 REFERRING PHYSICIAN: CONSULTING PHYSICIAN: Aurelio Lake MD This is a consult from Rodney Wu MD. REASON FOR CONSULTATION: Stomach pain. HISTORY OF PRESENT ILLNESS: This is a 21-year-old male, who presented to the emergency room, and Dr. Wu asked my opinion on his stomach/abdominal pain. This has been present for the last 24 hours, worse and intermittent. PAST SURGICAL HISTORY: None. PAST MEDICAL HISTORY: 1. Alcohol abuse. 2. Brain injury. 3. Hypertension. 4. Fracture. SOCIAL HISTORY: He does smoke everyday. FAMILY HISTORY: Noncontributory. REVIEW OF SYSTEMS: GENERAL: Appropriate for his condition. HEENT: No symptoms. CARDIOVASCULAR: No history of myocardial infarction. RESPIRATORY: No history of shortness of breath. GASTROINTESTINAL: No acholic stools. GENITOURINARY: No dysuria. NEUROLOGICAL: No symptoms. The remainder of review of systems including total 12 points was reviewed by myself, and are normal except for as listed above. PHYSICAL EXAMINATION: VITAL SIGNS: Temperature was 97.6, blood pressure was 107/57, pulse was 69, respirations were 29, and 95% on room air. GENERAL: The patient is appropriate for his condition. HEENT: Pupils are equal. NECK: Supple. CARDIOVASCULAR: Regular rhythm and rate. RESPIRATORY: Lungs are clear to auscultation bilaterally. ABDOMEN: Bowel sounds are positive. Pain with palpation of the right upper quadrant. No pain with palpation of epigastric. EXTREMITIES: Full range of motion. Strength is 5/5. NEUROLOGICAL: Oriented x3. Grossly intact. PSYCHIATRIC: No gross depression. LABORATORY RESULTS: Showed a normal bilirubin and alkaline phosphatase is 127. DIAGNOSTIC STUDIES: Imaging I did review, which shows cholelithiasis/cholecystitis. ASSESSMENT AND PLAN: In the operating room, patient is to undergo a laparoscopic cholecystectomy. We discussed risks, benefits, alternatives, and limitations including, but not limited to infection, bleeding, perforation of abdominal structures such as bowel or bladder as well as common bile duct injury, cystic duct leaks, open surgery, the role of pathology, and other points not listed here. The patient understands these risks, and wishes to proceed. Aurelio Lake MD /[id number]
--- NOTE | 2017-07-15 07:20 | DISCH ---
DISCHARGE DIAGNOSIS: Status post laparoscopic cholecystectomy. HOSPITAL COURSE: A pleasant 21-year-old male who underwent an uneventful laparoscopic cholecystectomy. The patient was discharged on postoperative day zero. His pain was well controlled. He had no nausea, vomiting, shortness of breath, or chest pain. FOLLOWUP: With Surgery in 7 to 14 days. ACTIVITY: No lifting greater than 30 pounds x30 days. DISCHARGE MEDICATIONS: Please see MAR.
--- NOTE | 2017-07-15 08:23 | OR ---
DATE OF PROCEDURE: 07/13/2017 PROCEDURES PERFORMED: Laparoscopic cholecystectomy. FINDINGS: Cholelithiasis and cholecystitis. PREOPERATIVE DIAGNOSES: 1. Cholelithiasis. 2. Cholecystitis. POSTOPERATIVE DIAGNOSES: 1. Cholelithiasis. 2. Cholecystitis. COMPLICATIONS: None. ASSISTANTS: None. ANESTHESIA: General/local. INDICATIONS: This is a pleasant gentleman with imaging proven cholelithiasis and cholecystitis requiring gallbladder removal. Risks, benefits, alternatives, and limitations including, but not limited to infection, bleeding, perforation, and injury to abdominal structures, such as bowel, bladder, common bile duct, or cystic duct were explained to the patient. They wished to proceed. PROCEDURE IN DETAIL: The patient was placed in a supine position. A supraumbilical curvilinear incision was made. A Veress needle was used to enter the abdomen without abnormality, and then a drop test was performed without abnormality. The abdomen was subsequently insufflated, and followed by an OptiView trocar. No evidence of enterotomy or injury was noted during entry. The gallbladder was identified and retracted cephalad. The infundibulum was retracted inferolaterally. Using blunt dissection, a "clear view" of the gallbladder was obtained with a single pulsatile structure entering the gallbladder and a single non-pulsatile structure entering the gallbladder. These were subsequently clipped x3 and transected. The remaining one-third of the gallbladder was moved off the gallbladder bed without difficulty. It was then delivered through the upper port with mild dissection via a bag. This was sent to Pathology. The liver bed was inspected for abnormality, which none was noted. This was then thoroughly irrigated. The irrigation was removed. The ports were thoroughly irrigated and closed with 3-0 Vicryl and 4-0 Vicryl in interrupted running fashion, along with Dermabond. The patient tolerated the procedure well. Aurelio Lake MD /[id number]
== END 2017-07-13 20:02 | disposition home or self-care (01) ==
LOC: EEVIPCON 03:10 → JP.ED 03:10 → UNDOADMOB 06:15 → JP.MS 06:15 → JP.SDS 06:35 → UNDODISOB 20:02
PROVIDERS: ATTEND Surgery
DX: K80.10 Calculus of gallbladder with chronic cholecystitis without obstruction (principal); I10 Essential (primary) hypertension; E03.9 Hypothyroidism, unspecified; Z88.1 Allergy status to other antibiotic agents; Z79.899 Other long term (current) drug therapy; F17.210 Nicotine dependence, cigarettes, uncomplicated
CPT/HCPCS: 36415; 47562; 74177; 80053; 80305; 81001; 83605; 83690; 85025; 88304; 96361; 96374; 96375; 99284; 99285; A9270; J0330; J0690; J1100; J1170; J1885; J2270; J2405; J2704; J2710; J3010; J7030; J7040; J7050; J7120

== ENCOUNTER 2017-08-22 21:47 | Emergency (ER) | payer MEDICAID ==
[2017-08-22 21:59] VITALS: BP 144/87
--- NOTE | 2017-08-22 22:31 | EDM.PDOC ---
ED HPI GENERAL MEDICAL PROBLEM - General Chief Complaint: Headache Stated Complaint: HEADACHES AND MOUTH INFECTION Time Seen by Provider: 08/22/17 22:15 Source of Information: Reports: Patient, Family, RN Notes Reviewed History Limitations: Reports: No Limitations - History of Present Illness INITIAL COMMENTS - FREE TEXT/NARRATIVE: 21-year-old gentleman presents emergency department today complaint of dental pain, he states since of dental pain for last couple weeks this progressively getting worse to the point where he's getting headaches that may be related to dental pain he does follow with the dental clinic in [place] his biggest concern is infection he denies any fevers or any amount of jaw swelling Lateral headache Pain Score (Numeric/FACES): 8 - Related Data Allergies Allergy/AdvReac Type Severity Reaction Status Date / Time amoxicillin Allergy Swelling Verified 08/22/17 22:05 haloperidol [From Haldol] Allergy Other Verified 08/22/17 22:06 Home Meds: Home Meds Cholecalciferol (Vitamin D3) [Vitamin D3] 1,000 tab PO DAILY 01/07/15 [History] Levothyroxine 25 mcg PO DAILY 12/27/15 [History] Propranolol [Inderal] 80 mg PO DAILY 12/27/15 [History] Sertraline HCl [Sertraline HCl] 100 mg PO DAILY 07/13/17 [History] QUEtiapine Fumarate [Quetiapine Fumarate] 50 mg PO DAILY PRN 08/22/17 [History] Past Medical History Cardiovascular History: Reports: Hypertension Musculoskeletal History: Reports: Fracture Neurological History: Reports: Brain Injury Other Neuro History: Mood instability. alcohol Psychiatric History: Reports: Addiction, Anxiety, Suicide Attempt, Other (See Below) Other Psychiatric History: wrist cutting ETOH abuse Endocrine/Metabolic History: Reports: Hypothyroidism - Past Surgical History GI Surgical History: Reports: Cholecystectomy Social & Family History - Family History Family Medical History: Unobtainable - Tobacco Use Smoking Status *Q: Current Every Day Smoker Years of Tobacco use: 12 Packs/Tins Daily: 0.5 Used Tobacco, but Quit: No Second Hand Smoke Exposure: Yes - Caffeine Use Caffeine Use: Reports: Soda - Alcohol Use Days Per Week of Alcohol Use: 0 - Recreational Drug Use Recreational Drug Use: Yes Drug Use in Last 12 Months: Yes Recreational Drug Type: Reports: Heroin, Marijuana/Hashish, Methamphetamine Other Recreational Drug Type: gabapentin Recreational Drug Use Frequency: Weekly - Living Situation & Occupation Living situation: Reports: Single Occupation: Disabled (lives with Mom in [place], [place] for the past 2 weeks, prior one year treatment center residential in [place], [place]. near [place], [place] ED ROS ENT - Review of Systems Review Of Systems: See Below Constitutional: Reports: No Symptoms HEENT: Reports: Dental Pain Respiratory: Reports: No Symptoms Cardiovascular: Reports: No Symptoms GI/Abdominal: Reports: No Symptoms : Reports: No Symptoms Neurological: Reports: Headache ED EXAM, ENT - Physical Exam Exam: See Below Exam Limited By: No Limitations General Appearance: Alert, WD/WN, No Apparent Distress Eye Exam: Bilateral Eye: Normal Inspection Mouth/Throat: Normal Inspection, Dental Pain, Dental Tenderness. No: Throat Pain, Tonsillar Swelling Head: Atraumatic, Normocephalic Neck: Normal Inspection, Supple, Non-Tender, Full Range of Motion Respiratory/Chest: No Respiratory Distress, Lungs Clear, Normal Breath Sounds Cardiovascular: Regular Rate, Rhythm Course - Vital Signs Last Recorded V/S: Last Vital Signs Temp 96.9 F 08/22/17 21:58 Pulse 78 08/22/17 21:58 Resp 16 08/22/17 21:58 BP 144/87 H 08/22/17 21:58 Pulse Ox 96 08/22/17 21:58 Departure - Departure Time of Disposition: 22:30 Disposition: Home, Self-Care 01 Condition: Good Clinical Impression: Pain, dental - Discharge Information Referrals: PCP,None [Primary Care Provider] - Additional Instructions: Take full course of antibiotics, please report to dentistry tomorrow for further evaluation and treatment - Assessment/Plan Plan: Assessment Acuity = acute Site and laterality = dental pain Etiology = concern for dental abscess Manifestations = none Location of injury = Home Lab values = none Plan Started on clindamycin 300 mg by mouth 4 times a day he will follow-up with dentistry tomorrow total #60 tablets Tylenol and ibuprofen for pain control This note was dictated using [employer] voice recognition software please call with any questions on syntax or fiordaliza.
== END 2017-08-22 22:38 | disposition home or self-care (01) ==
LOC: JP.ED 21:47
DX: K08.89 Other specified disorders of teeth and supporting structures (principal); I10 Essential (primary) hypertension; F17.210 Nicotine dependence, cigarettes, uncomplicated; E03.9 Hypothyroidism, unspecified; Z88.1 Allergy status to other antibiotic agents; Z88.8 Allergy status to other drugs, medicaments and biological substances; Z79.899 Other long term (current) drug therapy
CPT/HCPCS: 99284

== ENCOUNTER 2020-06-09 13:39 | Emergency (ER) | payer MEDICAID ==
--- NOTE | 2020-06-09 14:30 | EDM.PDOCBH ---
ED HPI GENERAL MEDICAL PROBLEM - General Chief Complaint: Drug or Alcohol Abuse Stated Complaint: OVERDOSE ON PILLS Time Seen by Provider: 06/09/20 14:15 Source of Information: Reports: Patient, Family History Limitations: Reports: Altered Mental Status - History of Present Illness INITIAL COMMENTS - FREE TEXT/NARRATIVE: 24-year-old male with a long history of drug abuse, took 14 pills of guaifenesin last evening several times totaling over 50 pills. Today he is twitchy, hallucinating and somewhat confused so mom wants him checked out. No vomiting, no fever, no seizures. He is oriented to person and place, he is 1 day off on time and unsure if it is afternoon or morning. He is on probation and wearing an ankle bracelet. Onset: Unknown/Unsure Associated Symptoms: Reports: Malaise, Other (Anxious, twitchy, intermittent hallucinations). Denies: Fever/Chills, Headaches, Seizure - Related Data Allergies Allergy/AdvReac Type Severity Reaction Status Date / Time amoxicillin Allergy Swelling Verified 08/22/17 22:05 haloperidol [From Haldol] Allergy Other Verified 08/22/17 22:06 Home Meds: Home Meds Cholecalciferol (Vitamin D3) [Vitamin D3] 1,000 tab PO DAILY 01/07/15 [History] Levothyroxine 25 mcg PO DAILY 12/27/15 [History] Propranolol [Inderal] 80 mg PO DAILY 12/27/15 [History] Sertraline HCl 100 mg PO DAILY 07/13/17 [History] QUEtiapine Fumarate [Quetiapine Fumarate] 50 mg PO DAILY PRN 08/22/17 [History] Past Medical History - Past Health History Medical/Surgical History: Denies Medical/Surgical History Cardiovascular History: Reports: Hypertension Gastrointestinal History: Reports: Cholelithiasis Musculoskeletal History: Reports: Fracture Neurological History: Reports: Brain Injury Other Neuro History: Mood instability. alcohol Psychiatric History: Reports: Addiction, Anxiety, Suicide Attempt, Other (See Below) Other Psychiatric History: wrist cutting ETOH abuse Endocrine/Metabolic History: Reports: Hypothyroidism - Past Surgical History GI Surgical History: Reports: Cholecystectomy Social & Family History - Family History Family Medical History: Unobtainable - Caffeine Use Caffeine Use: Reports: Soda - Recreational Drug Use Recreational Drug Use: Yes Drug Use in Last 12 Months: Yes Recreational Drug Type: Reports: Ecstasy, Heroin, Marijuana/Hashish, Methamphetamine, Other (see below) Other Recreational Drug Type: pt. states that he uses whatever he can get his hands on. - Living Situation & Occupation Living situation: Reports: Single Occupation: Disabled (lives with Mom in [place], [place] for the past 2 weeks, prior one year treatment center alf in [place], [place]. near [place], [place] ED ROS GENERAL - Review of Systems Review Of Systems: See Below Constitutional: Reports: Malaise. Denies: Fever, Chills HEENT: Denies: Vision Change Respiratory: Denies: Shortness of Breath Cardiovascular: Denies: Chest Pain GI/Abdominal: Denies: Nausea, Vomiting Neurological: Reports: Confusion, Other (Muscle twitching, especially in the upper extremities and face) ED EXAM, BEHAVIORAL HEALTH - Physical Exam Exam: See Below Exam Limited By: No Limitations General Appearance: Alert, No Apparent Distress, Anxious Eye Exam: Bilateral Eye: EOMI, PERRL Head: Atraumatic Neck: Non-Tender Respiratory/Chest: Lungs Clear Cardiovascular: Regular Rate, Rhythm Extremities: Normal Inspection Neurological: Alert, Disoriented to Time Skin Exam: Warm, Dry #1 Interpretation EKG Date: 06/09/20 Rhythm: NSR ST-T: Normal EKG Interpretation Comments: No previous for comparison COURSE, BEHAVIORAL HEALTH COMP - Course Vital Signs: Last Vital Signs Temp 98.7 F 06/09/20 14:23 Pulse 78 06/09/20 14:56 Resp 13 06/09/20 14:56 BP 128/68 06/09/20 14:56 Pulse Ox 97 06/09/20 14:56 Orders, Labs, Meds: Active Orders 24 hr Category Date Time Status EKG 12 Lead [EK] Routine Ther 06/09/20 14:30 Ordered Laboratory Tests 06/09/20 06/09/20 06/09/20 Range/Units 14:16 14:35 14:35 WBC 14.3 H (4.5-11.0) K/uL RBC 5.14 (4.30-5.90) M/uL Hgb 14.6 D (12.0-15.0) g/dL Hct 44.6 (40.0-54.0) % MCV 87 (80-98) fL MCH 28 (27-31) pg MCHC 33 (32-36) % Plt Count 260 (150-400) K/uL Neut % (Auto) 93 H (36-66) % Lymph % (Auto) 3 L (24-44) % Villalba % (Auto) 3 (2-6) % Eos % (Auto) 0 L (2-4) % Baso % (Auto) 0 (0-1) % Sodium 137 L (140-148) mmol/L Potassium 4.5 (3.6-5.2) mmol/L Chloride 102 (100-108) mmol/L Carbon Dioxide 22 (21-32) mmol/L Anion Gap 17.5 H (5.0-14.0) mmol/L BUN 9 (7-18) mg/dL Creatinine 1.0 (0.8-1.3) mg/dL Est Cr Clr Drug Dosing 133.79 mL/min Estimated GFR (MDRD) > 60 (>60) Glucose 106 (74-106) mg/dL Calcium 8.4 L (8.5-10.1) mg/dL Total Bilirubin 0.8 D (0.2-1.0) mg/dL AST 19 (15-37) U/L ALT 34 (12-78) U/L Alkaline Phosphatase 69 (46-116) U/L Total Protein 7.3 (6.4-8.2) g/dL Albumin 4.1 (3.4-5.0) g/dL Globulin 3.2 (2.3-3.5) g/dL Albumin/Globulin Ratio 1.3 (1.2-2.2) Urine Opiates Screen Presumptive positive H (NEGATIVE) Ur Oxycodone Screen Presumptive positive H (NEGATIVE) Urine Methadone Screen Negative (NEGATIVE) Ur Propoxyphene Screen Negative (NEGATIVE) Ur Barbiturates Screen Negative (NEGATIVE) Ur Tricyclics Screen Negative (NEGATIVE) Ur Phencyclidine Scrn Negative (NEGATIVE) Ur Amphetamine Screen Negative (NEGATIVE) U Methamphetamines Scrn Negative (NEGATIVE) Urine MDMA Screen Negative (NEGATIVE) U Benzodiazepines Scrn Negative (NEGATIVE) U Cocaine Metab Screen Negative (NEGATIVE) U Marijuana (THC) Screen Negative (NEGATIVE) Departure - Departure Time of Disposition: 15:16 Disposition: Home, Self-Care 01 Clinical Impression: Polysubstance abuse - Discharge Information Instructions: Substance Use Disorder Referrals: Anisa Dhaliwal DO [Primary Care Provider] - Forms: ED Department Discharge Care Plan Goals: Consider extended treatment to get sober. Avoid [id number] and prescription drug abuse in the future. Sepsis Event Note (ED) - Evaluation Sepsis Screening Result: No Definite Risk - Focused Exam Vital Signs: Vital Signs Temp Pulse Resp BP Pulse Ox 06/09/20 14:56 78 13 128/68 97 06/09/20 14:23 98.7 F 91 20 142/77 H 98 06/09/20 14:01 98.7 F 91 20 142/77 H 98 - My Orders Last 24 Hours: My Active Orders 06/09/20 14:30 EKG 12 Lead [EK] Routine - Assessment/Plan Last 24 Hours: My Active Orders 06/09/20 14:30 EKG 12 Lead [EK] Routine
[2020-06-09 14:57] VITALS: BP 128/68; PULSE 78
== END 2020-06-09 15:17 | disposition home or self-care (01) ==
LOC: JP.ED 13:39
DX: F19.10 Other psychoactive substance abuse, uncomplicated (principal); I10 Essential (primary) hypertension; F41.9 Anxiety disorder, unspecified; E03.9 Hypothyroidism, unspecified; Z88.1 Allergy status to other antibiotic agents; Z88.8 Allergy status to other drugs, medicaments and biological substances; Z79.899 Other long term (current) drug therapy
CPT/HCPCS: 36415; 80053; 80305-QW; 85025; 93005; 93010; 99283; 99285-25

== ENCOUNTER 2020-12-23 18:27 | Emergency (ER) | payer MEDICAID ==
[2020-12-23] MEDS ORDERED: Sodium Chloride 0.9% 10 ML Syringe FLUSH PRN (19:05)
--- NOTE | 2020-12-23 19:05 | EDM.PDOC ---
ED HPI GENERAL MEDICAL PROBLEM - General Chief Complaint: General Stated Complaint: DIFFICULTY BREATHING AND MUSCLE CRAMPS Time Seen by Provider: 12/23/20 18:53 Source of Information: Reports: Patient History Limitations: Reports: No Limitations - History of Present Illness INITIAL COMMENTS - FREE TEXT/NARRATIVE: Parviz is a 25-year-old male presenting to the ED with multiple complaints including shortness of breath, muscle cramps, dizziness, and generalized weakness. The patient apparently did methamphetamine yesterday and is been out in the high heat high humidity all day today walking around essentially doing nothing. In addition methamphetamine he also does marijuana. He usually uses the marijuana to come down off of the methamphetamine. He reports using methamphetamine at least once a week. Today he reports that he has not been drinking much. He has had some nausea. He did "pass out at one point but his significant other was not sure if he was just sleeping or actually passed out. He has had generalized muscle cramps, headache, nausea, generalized weakness, and lightheadedness with dizziness. In triage he is afebrile with a temperature 36.2 C. - Related Data Allergies Allergy/AdvReac Type Severity Reaction Status Date / Time amoxicillin Allergy Swelling Verified 08/22/17 22:05 haloperidol [From Haldol] Allergy Other Verified 08/22/17 22:06 Home Meds: Home Meds Levothyroxine 25 mcg PO DAILY 12/27/15 [History] QUEtiapine Fumarate [Quetiapine Fumarate] 50 mg PO DAILY PRN 08/22/17 [History] Past Medical History - Past Health History Medical/Surgical History: Denies Medical/Surgical History Cardiovascular History: Reports: Hypertension Gastrointestinal History: Reports: Cholelithiasis Musculoskeletal History: Reports: Fracture Neurological History: Reports: Brain Injury Other Neuro History: Mood instability. alcohol Psychiatric History: Reports: Addiction, Anxiety, Suicide Attempt, Other (See Below) Other Psychiatric History: wrist cutting ETOH abuse Endocrine/Metabolic History: Reports: Hypothyroidism - Past Surgical History GI Surgical History: Reports: Cholecystectomy Social & Family History - Family History Family Medical History: Unobtainable - Tobacco Use Tobacco Use Status *Q: Current Every Day Tobacco User Years of Tobacco use: 7 Packs/Tins Daily: 0.5 - Caffeine Use Caffeine Use: Reports: Coffee, Soda, Tea - Recreational Drug Use Recreational Drug Use: Yes Drug Use in Last 12 Months: Yes Recreational Drug Type: Reports: Marijuana/Hashish, Methamphetamine Recreational Drug Use Frequency: Weekly Recreational Drug Last Use: 7-07/14 - Living Situation & Occupation Living situation: Reports: Single Occupation: Disabled (lives with Mom in [place], [place] for the past 2 weeks, prior one year treatment center halfway in [place], [place]. near [place], [place] ED ROS GENERAL - Review of Systems Review Of Systems: See Below Constitutional: Reports: Malaise, Weakness, Fatigue HEENT: Reports: No Symptoms Respiratory: Reports: No Symptoms Cardiovascular: Reports: No Symptoms Endocrine: Reports: No Symptoms GI/Abdominal: Reports: Nausea : Reports: No Symptoms Musculoskeletal: Reports: Muscle Pain Skin: Reports: No Symptoms Neurological: Reports: Dizziness, Headache, Syncope Psychiatric: Reports: No Symptoms Hematologic/Lymphatic: Reports: No Symptoms Immunologic: Reports: No Symptoms ED EXAM, GENERAL - Physical Exam Exam: See Below Exam Limited By: No Limitations General Appearance: Alert, Anxious Eye Exam: Bilateral Eye: EOMI, PERRL Throat/Mouth: Normal Inspection, Normal Oropharynx, Normal Voice, No Airway Compromise Head: Atraumatic, Normocephalic Neck: Normal Inspection, Supple, Non-Tender, Full Range of Motion Respiratory/Chest: No Respiratory Distress, Lungs Clear, Normal Breath Sounds, No Accessory Muscle Use. No: Rales, Rhonchi, Wheezing Cardiovascular: Normal Peripheral Pulses, Regular Rate, Rhythm, No Murmur Peripheral Pulses: 2+: Radial (L), Radial (R) GI/Abdominal: Normal Bowel Sounds, Soft, Non-Tender Back Exam: Normal Inspection Extremities: Normal Inspection, Normal Range of Motion, Normal Capillary Refill Neurological: Alert, Oriented, Normal Cognition, No Motor/Sensory Deficits Psychiatric: Normal Affect, Anxious Skin Exam: Warm, Dry, Intact, Normal Color Lymphatic: No Adenopathy Course - Vital Signs Last Recorded V/S: Last Vital Signs Temp 36.2 C 12/23/20 18:47 Pulse 70 12/23/20 18:47 Resp 16 12/23/20 18:47 BP 132/91 H 12/23/20 18:47 Pulse Ox 97 12/23/20 18:47 - Orders/Labs/Meds Orders: Active Orders 24 hr Category Date Time Status Sodium Chloride 0.9% [Normal Saline] 1,000 ml Med 12/23/20 19:15 Active IV ASDIRECTED Sodium Chloride 0.9% [Saline Flush] Med 12/23/20 19:05 Active 10 ml FLUSH ASDIRECTED PRN Saline Lock Insert [OM.PC] Routine Oth 12/23/20 19:05 Ordered Medication Orders Sodium Chloride (Normal Saline) 1,000 mls @ 999 mls/hr IV ASDIRECTED BON Last Admin: 12/23/20 19:07 Dose: 999 mls/hr Documented by: TAMIKO Sodium Chloride (Sodium Chloride 0.9% 10 Ml Syringe) 10 ml FLUSH ASDIRECTED PRN PRN Reason: Keep Vein Open Last Admin: 12/23/20 19:07 Dose: 10 ml Documented by: TAMIKO Labs: Laboratory Tests 12/23/20 12/23/20 Range/Units 19:13 19:13 WBC 14.1 H (4.5-11.0) K/uL RBC 5.65 (4.30-5.90) M/uL Hgb 16.4 H (12.0-15.0) g/dL Hct 48.0 (40.0-54.0) % MCV 85 (80-98) fL MCH 29 (27-31) pg MCHC 34 (32-36) % Plt Count 289 (150-400) K/uL Neut % (Auto) 82.5 H (36-66) % Lymph % (Auto) 9.2 L (24-44) % [place] % (Auto) 8.0 H (2-6) % Eos % (Auto) 0.1 L (2-4) % Baso % (Auto) 0.2 (0-1) % Sodium 142 (140-148) mmol/L Potassium 4.0 (3.6-5.2) mmol/L Chloride 102 (100-108) mmol/L Carbon Dioxide 26 (21-32) mmol/L Anion Gap 14.1 H (5.0-14.0) mmol/L BUN 16 D (7-18) mg/dL Creatinine 1.6 H D (0.8-1.3) mg/dL Est Cr Clr Drug Dosing 82.89 mL/min Estimated GFR (MDRD) 52 L (>60) Glucose 88 (74-106) mg/dL Calcium 9.7 D (8.5-10.1) mg/dL Total Bilirubin 1.6 H D (0.2-1.0) mg/dL AST 31 (15-37) U/L ALT 33 (12-78) U/L Alkaline Phosphatase 91 (46-116) U/L Creatine Kinase 331 H (39-308) U/L Total Protein 8.1 (6.4-8.2) g/dL Albumin 4.8 (3.4-5.0) g/dL Globulin 3.3 (2.3-3.5) g/dL Albumin/Globulin Ratio 1.5 (1.2-2.2) Meds: Medications Generic Name Dose Route Start Last Admin Trade Name Freq PRN Reason Stop Dose Admin Sodium Chloride 1,000 mls @ 999 mls/hr 12/23/20 19:15 12/23/20 19:07 Normal Saline IV 999 mls/hr ASDIRECTED BON Administration Sodium Chloride 10 ml 12/23/20 19:05 12/23/20 19:07 Sodium Chloride 0.9% 10 Ml Syringe FLUSH 10 ml ASDIRECTED PRN Administration Keep Vein Open - Re-Assessments/Exams Free Text/Narrative Re-Assessment/Exam: 12/23/20 19:08 Parviz it appears may be suffering the effects of heat exhaustion or even heatstroke. He had been using methamphetamine yesterday and marijuana yesterday and today to come down from the methamphetamine. He is still intoxicated at this time. He has been out in the high heat high humidity all day and has not had any fluids to speak of resulting in muscle cramps, lightheadedness, nausea, headache, and generalized malaise. He is afebrile at 36.2 C. His skin is dry. We will check a CBC, comprehensive metabolic panel, and creatinine kinase. An IV was established and was given 1 L of normal saline for fluid repletion. 12/23/20 20:09 I reviewed the patient's labs showing a hemoglobin of 16.4 with hematocrit of 48.0, his leukocyte count is 14.1 and his platelet count is 289. His comprehensive metabolic panel is significant for a BUN of 16 with a creatinine 1.6 and a GFR calculated at 52 which is unusual for a 25-year-old male. His total bilirubin is elevated to 1.6 and his total creatinine is 331. This is consistent with some mild rhabdomyolysis due to heat prostration and dehydration. Patient was given a liter of IV normal saline and feels better. At this time he is suitable for discharge home in satisfactory condition. Departure - Departure Time of Disposition: 20:13 Disposition: Home, Self-Care 01 Clinical Impression: Dehydration, Methamphetamine abuse, Acute kidney injury Heat prostration due to water depletion Qualifiers: Encounter type: initial encounter Qualified Code(s): T67.3XXA - Heat exhaustion, anhydrotic, initial encounter - Discharge Information Instructions: Preventing Heat Exhaustion, Adult, Heat Exhaustion, Dehydration, Adult, Acute Kidney Injury, Adult Referrals: PCP,None [Primary Care Provider] - Forms: ED Department Discharge Care Plan Goals: Make sure to drink plenty of fluids over the next couple of days. Stay on the cool environment so that you do not have further heat related injury. No significant strenuous activity for a couple of days. Sepsis Event Note (ED) - Evaluation Sepsis Screening Result: No Definite Risk - Focused Exam Vital Signs: Vital Signs Temp Pulse Resp BP Pulse Ox 12/23/20 18:47 36.2 C 70 16 132/91 H 97 12/23/20 18:41 36.2 C 70 16 132/91 H 97 - Problem List & Annotations (1) Methamphetamine abuse SNOMED Code(s): 710595983 Code(s): F15.10 - OTHER STIMULANT ABUSE, UNCOMPLICATED Status: Chronic Priority: Medium Current Visit: Yes (2) Acute kidney injury SNOMED Code(s): 71094069, 08051853 Code(s): N17.9 - ACUTE KIDNEY FAILURE, UNSPECIFIED Status: Acute Priority: High Current Visit: Yes (3) Dehydration SNOMED Code(s): 09573347 Code(s): E86.0 - DEHYDRATION Status: Acute Priority: High Current Visit: Yes (4) Heat prostration due to water depletion SNOMED Code(s): 441845445 Code(s): T67.3XXA - HEAT EXHAUSTION, ANHYDROTIC, INITIAL ENCOUNTER Status: Acute Priority: High Current Visit: Yes Qualifiers: Encounter type: initial encounter Qualified Code(s): T67.3XXA - Heat exhaustion, anhydrotic, initial encounter - My Orders Last 24 Hours: My Active Orders 12/23/20 19:05 Sodium Chloride 0.9% [Saline Flush] 10 ml FLUSH ASDIRECTED PRN Saline Lock Insert [OM.PC] Routine 12/23/20 19:15 Sodium Chloride 0.9% [Normal Saline] 1,000 ml IV ASDIRECTED - Assessment/Plan Last 24 Hours: My Active Orders 12/23/20 19:05 Sodium Chloride 0.9% [Saline Flush] 10 ml FLUSH ASDIRECTED PRN Saline Lock Insert [OM.PC] Routine 12/23/20 19:15 Sodium Chloride 0.9% [Normal Saline] 1,000 ml IV ASDIRECTED
[2020-12-23] MEDS ORDERED: Sodium Chloride 0.9% 1,000 ML IV SCH (19:15)
[2020-12-23 20:11] VITALS: BP 138/85; PULSE 68
== END 2020-12-23 20:49 | disposition home or self-care (01) ==
LOC: JP.ED 18:27
DX: T67.3XXA Heat exhaustion, anhydrotic, initial encounter (principal); E86.0 Dehydration; F15.10 Other stimulant abuse, uncomplicated; N17.9 Acute kidney failure, unspecified; I10 Essential (primary) hypertension; E03.9 Hypothyroidism, unspecified; Z72.0 Tobacco use; Z88.0 Allergy status to penicillin; Z88.8 Allergy status to other drugs, medicaments and biological substances; Z79.899 Other long term (current) drug therapy
CPT/HCPCS: 36415; 80053; 82550; 85025; 99284; J7030; 99283

== ENCOUNTER 2021-08-15 13:27 | Emergency (ER) | payer MEDICAID ==
[2021-08-15 13:42] VITALS: BP 140/80; PULSE 79
[2021-08-15] MEDS ORDERED: Sodium Chloride 0.9% 10 ML Syringe FLUSH PRN (14:09)
[2021-08-15 15:15] LABS: CORONAVIRUS COVID-19 NAA NEGATIVE (NEGATIVE)
== END 2021-08-15 16:14 | disposition home or self-care (01) ==
LOC: JP.ED 13:27
DX: F19.20 Other psychoactive substance dependence, uncomplicated (principal); E03.9 Hypothyroidism, unspecified; I10 Essential (primary) hypertension; Z88.5 Allergy status to narcotic agent; Z79.899 Other long term (current) drug therapy; Z20.822 Contact with and (suspected) exposure to COVID-19
CPT/HCPCS: 0241U; 36415; 80053; 80305; 81001; 83690; 85025; 93005; 93010; 99283; 99284